=== PATIENT | female | born 1955 | race Caucasian/White ===

== ENCOUNTER 2020-04-23 08:16 | Outpatient (REF) | payer BC, SELFPAY | END 2020-04-23 08:17 | disposition home or self-care (01) | LOC: HO.LAB 08:16 | PROVIDERS: PCP Internal Medicine; Visit Provider Internal Medicine | DX: Z20.828 Contact with and (suspected) exposure to other viral communicable diseases (principal) | CPT/HCPCS: C9803; U0003 ==

== ENCOUNTER 2024-08-05 11:16 | Outpatient (AMB) | payer MEDICARE, SELFPAY ==
--- NOTE | 2024-08-05 11:22 | A.OFFVIS_ITS ---
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 Patient reports she took a fall on 07/09/24 and is now having pain on the lateral aspect of the knee. She is not taking anything for pain. The patient states that [place]. S he hyperflexed her left knee. Most of the discomfort is along the lateral aspect of her knee. She states that at times her knee will feel unstable. She has been able to return to golf and bowling. 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 Physical Exam Vital Signs: BMI result Body Mass Index 25.3 Const Other: Well-nourished well-developed very friendly female awake alert and oriented x3 in no acute distress Extrem Other: Left knee examination shows that the surgical incision is well healed, no erythema, full active extension and flexion to 120 degrees, her patella tracks well, tenderness along her lateral collateral ligament, no instability Results Reviewed Results Reviewed: X-ray report of the patient's left knee shows a total knee arthroplasty in good position with no signs of loosening, no acute bony abnormalities Assessment & Plan Assessment & Plan (1) Left knee pain: Code(s): M25.562 - Pain in left knee Category: Medical Plan Ms. Hicks presents with discomfort along the lateral aspect of her left knee most likely due to a strain of her lateral collateral ligament. I did have the patient fitted with a knee brace. I do feel that the knee brace is a medical necessity to help prevent future falls. She will continue with her gentle [id number] exercises and activity modifications. She will contact me prior to her follow-up appointment in 2 months should any questions or concerns arise. Feel free to call me at any time should questions regarding her orthopedic management arise. I spent 21 minutes in reviewing the patient's records and imaging studies, seeing the patient and documenting in the medical record. Orders: Orders XR knee LT 3V Today M25.562 - Pain in left knee Coding Level of Care Code Est Pt Level 3 (11386) Complex EM visit Add On G2211 Diagnoses Left knee pain M25.562
[2024-08-05 11:28] VITALS: BMI 25.3
--- OUTSIDE RECORDS SUMMARY | 2024-08-05 12:55 | XMS_ITS | Clinical Summary ---
Author Organization [facility] Address [address] [place] [address] Care Team Providers Care Lead Blender Name Role Phone Donato Dhaliwal MD Primary Care Provider [phone] Allergies Active Allergy Reactions Criticality Noted Date Comments Latex 05/09/2019 Medications Medication Sig Dispensed Refills Start Date End Date Status amoxicillin (AMOXIL) 500 MG tablet Take 4 tabs 1 hour prior to dental appointment 20 tablet 3 03/05/2018 Active Levothyroxine Sodium (LEVOXYL PO) Take by mouth. 0 A ctive Active Problems Problem Noted Date Diagnosed Date Sprain of lateral collateral ligament of left kn ee 05/10/2019 Family History Medical History Relation Name Comments Diabetes Brother Heart disease Brother Hypertension Brother Diabetes Father Heart disease Father Hypertension Father Arthritis Mother Heart disease Mother Hypertension Mother Cancer Sister Diabetes Sister Heart disease Sister Hypertension Sister Relation Name Status Comments Brother Father Mother Sister Social History Tobacco Use Types Packs/Day Years Used Date Smoking Tobacco: Former Smokeless Tobacco: Never Alcohol Use Standard Drinks/Week Comments Yes 0 (1 standard drink = 0.6 oz pur e alcohol) Sex and Gender Information Value Date Recorded Sex Assigned at Not on file Gender Identity Not on file Sexual Orientation Not on file Job Start Date Occupation Industry Not on file Not on file Not on file Last Filed Vital Signs Vital Sign Reading Time Taken Comments Blood Pressure - - Pulse - - Temperature - - Respiratory Rate - - Oxygen Saturation - - Inhaled Oxygen Concentration - - Weight 78.9 kg (174 lb) 05/09/2019 3:12 PM EST Height 162.6 cm (5' 4 ) 05/09/2019 3:12 PM EST Body Mass Index 29.87 05/09/2019 3:12 PM EST Plan of Treatment Health Maintenance Due Date Last Done Comments Hepatitis C Screening 1955 COVID-19 Vaccine (#1) 06/08/1957 Depression Screening 1968 BMI Counseling 1974 Preventative Health Evaluation 1974 DTap / Tdap / Td (1 - Tdap) 12/07/1975 Colon Cancer Screening (Colonoscopy) 2001 Breast Cancer Screening (Mammogram) 2006 Shingrix-Zoster Vaccine (1 of 2) 2006 Fall Risk Assessment 2021 Osteoporosis Screening (DEXA Scan) 2021 Pneumococcal Vaccine (1 of 1 - PCV) 2021 Influenza Vaccine (#1) 2024 RSV Adult > 60+ Yrs or Pregn ant (1 - 1-dose 75+ series) 12/07/2031 Hepatitis B Vaccines Aged Out No long er eligible based on patient's age to complete this topic RSV Ped < 20 months Aged Out No longe r eligible based on patient's age to complete this topic Care Teams Lead Blender Relationship Specialty Start Date End Date Donato Dhaliwal MD [address] [place] [address] PCP - General Director Trading 03/05/18
--- OUTSIDE RECORDS SUMMARY | 2024-08-05 12:55 | XMS_ITS | Clinical Summary ---
Author Organization [facility] Address [address] [place] [address] Phone Care Team Providers Care Mill Tender Name Role Phone Donato Dhaliwal MD Primary Care Provider [phone] Encounters Date Type Department Care Team Description 07/11/2024 7:13 PM EST - 07/11/2024 11:59 PM EST Hospital Encounter [facility] MRI [address] [place] [phone] Pain in left knee Discharge Disposition: Home or Self Care 07/10/2024 12:24 PM EST - 07/10/2024 11:59 PM EST Hospital Encounter [facility] Xray [address] [place] [phone] Pain Discharge Disposition: Home or Self Care from Last 3 Months Surgical History Surgery Date Site/Laterality Comments KNEE SURGERY Left PROCEDURE: HISTORICAL KNEE SURGERY; COMMENT: Left Repalcement w/ Dr. Zamarripa Medical History Medical History Date Comments Chronic kidney disease, stage 2 (mild) DX:Chronic kidney disease, stage 2 (mild) Hypothyroidism DX:Hypothyroidis m Obesity DX:Obesity Osteoarthritis of knee DX:Osteoa rthritis of knee Family History Medical History Relation Name Comments Other: afib Brother Diabetes Father Other: Cardiovascular Disease Father ESRD Mother Other: afib Mother Other: rv failure Mother Other: afib Sister Relation Name Status Comments Brother Father Mother Sister Social History Tobacco Use Types Packs/Day Years Used Date Smoking Tobacco: Former Smokeless Tobacco: Never Alcohol Use Standard Drinks/Week Comments Yes 0 (1 standard drink = 0.6 oz pur e alcohol) Comments Unknown Sex and Gender Information Value Date Recorded Sex Assigned at Not on file Legal Sex Female 10:40 AM EST Gender Identity Not on file Sexual Orientation Not on file Obstetrics History Last Filed Vital Signs Vital Sign Reading Time Taken Comments Blood Pressure 122/80 09/06/2023 8:31 AM EDT Sit ting L Arm Pulse 57 09/06/2023 8:31 AM EDT Temperature - - Respiratory Rate - - Oxygen Saturation - - Inhaled Oxygen Concentration - - Weight 70.8 kg (156 lb) 09/06/2023 8:31 AM EDT Height 162.6 cm (5' 4 ) 09/06/2023 8:31 AM EDT Body Mass Index 26.78 09/06/2023 8:31 AM EDT Plan of Treatment Health Maintenance Due Date Last Done Comments Breast Cancer Screening 1955 DTaP,Tdap,and Td Vaccines (1 - Tdap) 12/07/1975 Pneumococcal Vaccine: 50+ Years (1 of 1 - PCV) 2006 Zoster Vaccines (1 of 2) 2006 Cholesterol Screening (Lipid Panel) 04/17/2022 Colorectal Cancer Screening: Colonoscopy 04/17/2022 Depression Screening 04/17/2022 Falls Risk Assessment 04/17/2022 Hepatitis C Screening 04/17/2022 Osteoporosis Screening (Bone Density Screening) 04/17/2022 Social Influencers of Health Screening 04/17/2022 COVID-19 Vaccine (4 - 2023-2 5 season) 2024 03/16/2021, 05/26/2020, 05/05/2020 Influenza Vaccine (#1) 2024 , 02/07/2022 Medicare Annual Wellness Visit 02/11/2024 02/10/2023 RSV Immunization Patients 60 + Years Old (1 - 1-dose 75+ series) 12/07/2031 HIB Vaccines Aged Out No longer eligi ble based on patient's age to complete this topic HPV Vaccines Aged Out No longer eligi ble based on patient's age to complete this topic Hepatitis A Vaccines Aged Out No long er eligible based on patient's age to complete this topic Hepatitis B Vaccines Aged Out No long er eligible based on patient's age to complete this topic IPV Vaccines Aged Out No longer eligi ble based on patient's age to complete this topic MMR Vaccines Aged Out No longer eligi ble based on patient's age to complete this topic Meningococcal ACWY Vaccine Aged Out N o longer eligible based on patient's age to complete this topic Meningococcal B Vacine Aged Out No lo nger eligible based on patient's age to complete this topic RSV Immunization Patients Under 20 months Aged Out No longer eligible b ased on patient's age to complete this topic Varicella Vaccines Aged Out No longer eligible based on patient's age to complete this topic Procedures Procedure Name Priority Date/Time Associated Diagnosis Comments MR KNEE WO CONTRAST LEFT Routine 07/11/2024 8:56 PM EST Pain in left knee XR KNEE 4+ VIEWS LEFT Routine 07/10/2024 12:39 PM EST Pain from Last 3 Months Results * MR Knee wo Contrast Left (07/11/2024 8:56 PM EST) Anatomical Region Laterality Modality Lower Extremities, Knee Left Magnetic Resonance 07/12/2024 11:0 7 AM EST Impressions 07/12/2024 11:31 AM EST Limited study secondary to susceptibility artifact from patient's knee arthroplasty. Moderate joint effusion. Marrow edema in the proximal fibula without a visible fracture line. ??Adjacent soft tissue edema. -------- FINAL REPORT -------- Dictated By: Butch Naik Dictated Date: 07/12/2024 11:07 ET Assigned Physician: Butch Naik Reviewed and Electronically Signed By: Butch Naik Signed Date: 07/12/2024 11:31 ET Workstation ID: [id number] Transcribed By: Self Edit Transcribed Date: 07/12/2024 11:09 ET Narrative 07/12/2024 11:31 AM EST PROCEDURE: MRI of the left knee without contrast. HISTORY: lt knee pain and swelling, ??s/p injury. COMPARISON: Radiographs dated 07/10/2024. TECHNIQUE: Multiplanar multisequence MRI of the left knee without intravenous contrast administration. FINDINGS: Significant susceptibility artifact from the patient's knee arthroplasty limits evaluation. Moderate joint effusion. There is marrow edema in the proximal fibula, with adjacent soft tissue edema. No visible periarticular soft tissue mass or fluid collection. The quadriceps and patellar tendon appear intact. Procedure Note Butch Naik MD - 07/12/2024 PROCEDURE: MRI of the left knee without contrast. HISTORY: lt knee pain and swelling, s/p injury. COMPARISON: Radiographs dated 07/10/2024. TECHNIQUE: Multiplanar multisequence MRI of the left knee withoutintravenous contrast administration. FINDINGS: Significant susceptibility artifact from the patient's knee arthroplastylimits evaluation. Moderate joint effusion. There is marrow edema in the proximal fibula, with adjacent soft tissueedema. No visible periarticular soft tissue mass or fluid collection. The quadriceps and patellar tendon appear intact. IMPRESSION: Limited study secondary to susceptibility artifact from patient's kneearthroplasty. Moderate joint effusion. Marrow edema in the proximal fibula without a visible fracture line.Adjacent soft tissue edema. -------- FINAL REPORT -------- Dictated By: Butch Naik Dictated Date: 07/12/2024 11:07 ET Assigned Physician: Butch Naik Reviewed and Electronically Signed By: Butch Naik Signed Date: 07/12/2024 11:31 ET Workstation ID: [id number] Transcribed By: Self Edit Transcribed Date: 07/12/2024 11:09 ET Bill Lacey NP IMG MRI PROCEDURES Final Result * XR Knee 4+ Views Left (07/10/2024 12:39 PM EST) Anatomical Region Laterality Modality Lower Extremities, Knee Left Radiogra [facility] Imaging 07/11/2024 7:41 AM EST Impressions 07/11/2024 7:43 AM EST No fracture, dislocation, or other acute findings. Satisfactory appearance following previous total left knee replacement surgery; there are indications that the patient has undergone revision of knee replacement in the past. Code 13049 -------- FINAL REPORT -------- Dictated By: Donato Dasilva Dictated Date: 07/11/2024 07:41 ET Assigned Physician: Donato Dasilva Reviewed and Electronically Signed By: Donato Dasilva Signed Date: 07/11/2024 07:43 ET Workstation ID: [id number] Transcribed By: Self Edit Transcribed Date: 07/11/2024 07:41 ET Narrative 07/11/2024 7:43 AM EST HISTORY: The patient is a 68-year-old female with left knee pain. No history of trauma is provided. FINDINGS: AP, lateral, internal rotation, and external rotation views of the left knee are obtained. No prior study is available for comparison. The study demonstrates that the patient has undergone previous total left knee replacement surgery. There is good relationship of the prosthetic elements to each other and to the surrounding bony structures. ??There is no radiographic evidence of loosening or infection of the prostheses. A cylindrical lucency in the distal femur, and densities in the distal femur and proximal tibia indicate that the patient has undergone previous revision of knee replacement. There is no fracture or dislocation. There are small superior and inferior patellar osteophytes. No joint effusion is seen. Procedure Note Donato Dasilva MD - 07/11/2024 HISTORY: The patient is a 68-year-old female with left knee pain. Nohistory of trauma is provided. FINDINGS: AP, lateral, internal rotation, and external rotation views ofthe left knee are obtained. No prior study is available for comparison.The study demonstrates that the patient has undergone previous total leftknee replacement surgery. There is good relationship of the prostheticelements to each other and to the surrounding bony structures. There isno radiographic evidence of loosening or infection of the prostheses. Acylindrical lucency in the distal femur, and densities in the distal femurand proximal tibia indicate that the patient has undergone previousrevision of knee replacement. There is no fracture or dislocation. Thereare small superior and inferior patellar osteophytes. No joint effusion isseen. IMPRESSION: No fracture, dislocation, or other acute findings. Satisfactory appearancefollowing previous total left knee replacement surgery; there areindications that the patient has undergone revision of knee replacement inthe past. Code 07542 -------- FINAL REPORT -------- Dictated By: Donato Dasilva Dictated Date: 07/11/2024 07:41 ET Assigned Physician: Donato Dasilva Reviewed and Electronically Signed By: Donato Dasilva Signed Date: 07/11/2024 07:43 ET Workstation ID: [id number] Transcribed By: Self Edit Transcribed Date: 07/11/2024 07:41 ET us Bill Lacey SVP MONETIZATION IMG XR PROCEDURES Final Result from Last 3 Months Insurance MEDICARE [facility] Advance Directives Documents on File Type Date Recorded Patient Special Skills Officer Expl anation Health Care Decision (hx) 12/05/2014 AD RAINES DIRECTIVE Health Care Decision (hx) 12/05/2014 AD RAINES DIRECTIVE Health Care Decision (hx) 12/05/2014 AD RAINES DIRECTIVE Health Care Decision (hx) 12/05/2014 AD RAINES DIRECTIVE Health Care Decision (hx) 12/05/2014 AD RAINES DIRECTIVE Health Care Decision (hx) 12/05/2014 AD RAINES DIRECTIVE Health Care Decision (hx) 12/05/2014 AD RAINES DIRECTIVE Health Care Decision (hx) 12/05/2014 AD RAINES DIRECTIVE Health Care Decision (hx) 12/05/2014 AD RAINES DIRECTIVE Health Care Decision (hx) 12/02/2014 AD RAINES DIRECTIVE Health Care Decision (hx) 12/02/2014 AD RAINES DIRECTIVE Health Care Decision (hx) 12/02/2014 AD RAINES DIRECTIVE Health Care Decision (hx) 12/02/2014 AD RAINES DIRECTIVE Health Care Decision (hx) 12/02/2014 AD RAINES DIRECTIVE Health Care Decision (hx) 12/02/2014 AD RAINES DIRECTIVE Health Care Decision (hx) 12/02/2014 AD RAINES DIRECTIVE Health Care Decision (hx) 12/02/2014 AD RAINES DIRECTIVE Health Care Decision (hx) 12/02/2014 AD RAINES DIRECTIVE Health Care Decision (hx) 12/01/2014 AD RAINES DIRECTIVE Health Care Decision (hx) 12/01/2014 AD RAINES DIRECTIVE Health Care Decision (hx) 12/01/2014 AD RAINES DIRECTIVE Health Care Decision (hx) 12/01/2014 AD RAINES DIRECTIVE Health Care Decision (hx) 12/01/2014 AD RAINES DIRECTIVE Health Care Decision (hx) 12/01/2014 AD RAINES DIRECTIVE Health Care Decision (hx) 12/01/2014 AD RAINES DIRECTIVE Health Care Decision (hx) 12/01/2014 AD RAINES DIRECTIVE Health Care Decision (hx) 12/01/2014 AD RAINES DIRECTIVE Health Care Decision (hx) 12/01/2014 AD RAINES DIRECTIVE Health Care Decision (hx) 12/01/2014 AD RAINES DIRECTIVE Health Care Decision (hx) 12/01/2014 AD RAINES DIRECTIVE Health Care Decision (hx) 12/01/2014 AD RAINES DIRECTIVE Health Care Decision (hx) 12/01/2014 AD RAINES DIRECTIVE Health Care Decision (hx) 12/01/2014 AD RAINES DIRECTIVE Health Care Decision (hx) 12/01/2014 AD RAINES DIRECTIVE Health Care Decision (hx) 12/01/2014 AD RAINES DIRECTIVE Health Care Decision (hx) 12/01/2014 AD RAINES DIRECTIVE Care Teams Mill Tender Relationship Specialty Start Date End Date Donato Dhaliwal MD [address] [place], [place] [address]samir Lucas [address] PCP - General Internal Medicine 05/14/21
== END 2024-08-05 11:47 | disposition home or self-care (01) ==
LOC: HO.HOS 11:16
PROVIDERS: PCP Internal Medicine; Visit Provider Orthopaedic Surgery
DX: M25.562 Pain in left knee (principal)
CPT/HCPCS: 99203; G2211

== ENCOUNTER 2024-08-05 11:16 | Outpatient (REF) | payer MEDICARE, SELFPAY | END 2024-08-05 11:17 | disposition home or self-care (01) | LOC: HO.HOSX 11:16 | PROVIDERS: PCP Internal Medicine; Visit Provider Orthopaedic Surgery | DX: M25.562 Pain in left knee (principal) | CPT/HCPCS: 99202 ==

== ENCOUNTER 2024-09-26 11:38 | Outpatient (REF) | payer MEDICARE, SELFPAY ==
--- OUTSIDE RECORDS SUMMARY | 2024-09-27 11:40 | XMS_ITS | Clinical Summary ---
Author Organization [facility] Address [address] [place] [address] Phone Care Team Providers Care Peoplesoft Hrms Developer Name Role Phone Donato Dhaliwal MD Primary Care Provider [phone] Encounters Date Type Department Care Team Description 07/11/2024 7:13 PM EST - 07/11/2024 11:59 PM EST Hospital Encounter [facility] MRI [address] [place] [phone] Pain in left knee Discharge Disposition: Home or Self Care 07/10/2024 12:24 PM EST - 07/10/2024 11:59 PM EST Hospital Encounter [facility] Xray [address] [place] [phone] Pain Discharge Disposition: Home or Self Care [...] 2023-2 5 season) 2024 03/16/2021, 05/26/2020, 05/05/2020 Medicare Annual Wellness Visit 02/11/2024 02/10/2023 Influenza Vaccine (Season Ended) 2025 02/10/2023, 02/07/2022 RSV Immunization Adult Patients (1 - 1-dose 75+ series) 12/07/2031 HIB [...] age to complete this topic Meningococcal B Vaccine Aged Out No l onger eligible based on patient's age to complete [...] Signed Date: 07/12/2024 11:31 ET Workstation ID: [id number] Transcribed By: Self Edit Transcribed Date: 07/12/2024 [...] Signed Date: 07/12/2024 11:31 ET Workstation ID: [id number] Transcribed By: Self Edit Transcribed Date: 07/12/2024 11:09 ET Bill Lacey NP IMG MRI PROCEDURES Final Result * XR Knee 4+ Views Left (07/10/2024 12:39 PM EST) Anatomical Region Laterality Modality Lower Extremities, Knee Left [facility] 07/11/2024 7:41 AM EST Impressions 07/11/2024 7:43 AM EST No fracture, dislocation, or other acute findings. Satisfactory appearance following previous total left knee replacement surgery; there are indications that the patient has undergone revision of knee replacement in the past. Code 08581 -------- FINAL REPORT -------- Dictated By: Donato Dasilva Dictated Date: 07/11/2024 07:41 ET Assigned Physician: Donato Dasilva Reviewed and Electronically Signed By: Donato Dasilva Signed Date: 07/11/2024 07:43 ET Workstation ID: [id number] Transcribed By: Self Edit Transcribed Date: 07/11/2024 [...] revision of knee replacement inthe past. Code 44873 -------- FINAL REPORT -------- Dictated By: Donato Dasilva Dictated Date: 07/11/2024 07:41 ET Assigned Physician: Donato Dasilva Reviewed and Electronically Signed By: Donato Dasilva Signed Date: 07/11/2024 07:43 ET Workstation ID: [id number] Transcribed By: Self Edit Transcribed Date: 07/11/2024 07:41 ET Bill Lacey JOINERS SUPERVISOR IMG XR PROCEDURES Final Result from Last 3 Months Insurance MEDICARE [facility] Advance Directives Documents on File Type Date Recorded Patient Billet Examiner Expl anation Health Care Decision (hx) 12/05/2014 [...] (hx) 12/01/2014 AD RAINES DIRECTIVE Care Teams Peoplesoft Hrms Developer Relationship Specialty Start Date End Date Donato Dhaliwal MD [address] [place] [address] [place] [address] PCP - General Internal Medicine 05/14/21
== END 2024-09-26 11:39 | disposition home or self-care (01) ==
LOC: HO.HOSX 11:38
PROVIDERS: Visit Provider Orthopaedic Surgery
DX: Z13.89 Encounter for screening for other disorder (principal)